=== PATIENT | male | born 1965 | race Caucasian/White ===

== ENCOUNTER 2025-05-22 16:21 | Inpatient (IN) | payer MEDICAID ==
[~2025-05-22] VITALS: Ht 182.9 cm; Wt 95.7 kg
[2025-05-22] MEDS ORDERED: ARIP400S6 IM (16:35)
[2025-05-22] MEDS ORDERED: LITH300C3 PO (16:35)
[2025-05-22] MEDS ORDERED: AMAN-24 PO (16:35)
[2025-05-22] MEDS ORDERED: CLOZ25TA52 PO (16:35)
[2025-05-22] MEDS ORDERED: DIPH50VI13 IM (16:35)
[2025-05-22] MEDS ORDERED: HALO5VIA16 IM (16:35)
[2025-05-22] MEDS ORDERED: ARIP400S3 IM (16:39)
[2025-05-22] MEDS ORDERED: ZOLPIDEM TARTRATE 10 MG TABLET PO PRN ×3 (17:45→20:30)
[2025-05-22 18:44] LABS: PLATELET COUNT (AUTO) 232 K/uL (150-450); RED BLOOD CELL COUNT(AUTO) 4.99 MIL/uL (4.50-5.90); RED CELL DISTRIBUTION WIDTH 14.4 % (11.5-14.5); WHITE BLOOD COUNT (AUTO) 8.9 K/uL (4.5-11.0)
[2025-05-22 18:51] LABS: COVID AG,FIA SOURCE NASAL SWAB
[2025-05-22 18:54] LABS: CALCIUM, TOTAL 8.9 mg/dL (8.8-10.5); CREATININE 1.05 mg/dL (0.60-1.30); GLOMERULAR FILTR. RATE CALC > 60 mL/min (>60); GLUCOSE,RANDOM 79 mg/dL (70-110); SODIUM SERUM 141 mmol/L (136-145); UREA NITROGEN, BLOOD 17 mg/dL (7-18)
[2025-05-22 19:08] LABS: SARS-COV2 (COVID) ANTIGEN,FIA Negative (Negative)
[2025-05-22 20:24] VITALS: O2SAT 98
[2025-05-22 22:10] VITALS: BP 135/96; PULSE 85; RESP 18; TEMP 97.8; O2SAT 98
[2025-05-23] MEDS: NICOTINE 14 MG/24 HOUR PATCH TD SCH (08:30)
[2025-05-23 08:31] VITALS: BP 128/76; PULSE 88; RESP 16; TEMP 98.2; O2SAT 98
[2025-05-23] MEDS ORDERED: PROMETHAZINE HCL 25 MG TABLET PO PRN (10:15)
[2025-05-23] MEDS ORDERED: LOPERAMIDE HCL 2 MG CAPSULE PO PRN (10:15)
[2025-05-23] MEDS ORDERED: MAG HYDROX/ALUMINUM HYD/SIMETH ES 30 ML SUSPENSION UDCUP PO PRN (10:15)
[2025-05-23] MEDS ORDERED: GuaiFENesin/D-METHORPHAN [SUGAR-FREE] 200-20MG/10 ML SYRUP UDCUP PO PRN (10:15)
[2025-05-23] MEDS ORDERED: MAGNESIUM HYDROXIDE SUSPENSION 30 ML UDCUP PO PRN (10:15)
[2025-05-23] MEDS ORDERED: OLANZapine 5 MG RAPDIS TABLET PO PRN (10:15)
[2025-05-23] MEDS ORDERED: ACETAMINOPHEN 325 MG TABLET PO PRN (10:15)
[2025-05-23] MEDS: DIVALPROEX SODIUM 500 MG ER TABLET PO SCH (12:12)
[2025-05-23] MEDS: LITHIUM CARBONATE 300 MG CAPSULE PO SCH (16:09)
[2025-05-23] MEDS: THIAMINE 100 MG TABLET PO SCH (16:09)
[2025-05-23] MEDS: OLANZapine 5 MG RAPDIS TABLET PO SCH (16:10)
[2025-05-23] MEDS: MELATONIN 5 MG TABLET PO SCH (20:18)
[2025-05-24] MEDS: FOLIC ACID 1 MG TABLET PO SCH (09:00)
[2025-05-24] MEDS: OMEGA-3/DHA/EPA/FISH OIL 1,000 MG CAPSULE PO SCH (09:05)
[2025-05-24] MEDS: MULTIVITAMINS WITH MINERALS, THERAPEUTIC TABLET PO SCH (09:05)
[2025-05-24] MEDS: TUBERCULIN, PURIFIED PROTEIN DERIVATIVE 5 TU/0.1 ML SYRINGE ID ONE (16:40)
[2025-05-24 20:34] VITALS: BP 116/69; PULSE 89; RESP 17; TEMP 98; O2SAT 99
[2025-05-25 08:39] VITALS: RESP 17
[2025-05-25 09:03] LABS: PLATELET COUNT (AUTO) 191 K/uL (150-450); RED BLOOD CELL COUNT(AUTO) 4.77 MIL/uL (4.50-5.90); RED CELL DISTRIBUTION WIDTH 14.6 % (11.5-14.5); WHITE BLOOD COUNT (AUTO) 8.3 K/uL (4.5-11.0)
[2025-05-25 09:36] LABS: CHOL/HDL RATIO 4.3 (4.2-7.3); LDL CHOL (CALC.) 107.0 mg/dL (0-130)
[2025-05-25] MEDS: PALIPERIDONE PALMITATE 234 MG/1.5 ML SYRINGE IM ONE (09:50)
[2025-05-25] MEDS: LITHIUM CARBONATE 300 MG CAPSULE PO SCH (22:05)
[2025-05-26] MEDS: LITHIUM CARBONATE 300 MG CAPSULE PO SCH (13:27)
[2025-05-26 20:27] VITALS: BP 127/82; PULSE 78; RESP 18; TEMP 98.2; O2SAT 98
[2025-05-27 08:00] VITALS: BP 107/60; PULSE 82; RESP 18; TEMP 98; O2SAT 98
[2025-05-27] MEDS ORDERED: CLOZ25TA52 PO ×4 (10:46→15:01)
[2025-05-27] MEDS ORDERED: AMAN-24 PO (10:46)
[2025-05-27] MEDS ORDERED: CLOZ100T61 PO ×3 (10:46→15:01)
[2025-05-27] MEDS ORDERED: OMEG100033 PO (10:50)
[2025-05-27] MEDS ORDERED: LITH300C3 PO ×2 (10:50→15:05)
[2025-05-27] MEDS ORDERED: MELA5TAB40 PO (10:50)
[2025-05-27] MEDS ORDERED: OLAN5TAB94 PO (10:50)
[2025-05-27] MEDS: PALIPERIDONE PALMITATE 156 MG/ML SYRINGE IM ONE (13:12)
[2025-05-27] MEDS ORDERED: DIVA-153 PO (15:01)
[2025-05-27] MEDS ORDERED: MELA5TAB12 PO (15:05)
== END 2025-05-27 15:08 | DRG 761 ==
LOC: EMS 16:21 → B2S 18:58
PROVIDERS: ADMIT Psychiatry & Neurology Psychiatry; ATTEND Psychiatry & Neurology Psychiatry
PROC: GZHZZZZ Group Psychotherapy (ICD-10-PCS; principal; 2025-05-23)
PROC: GZ58ZZZ Individual Psychotherapy, Cognitive-Behavioral (ICD-10-PCS; 2025-05-23)
PROC: GZ56ZZZ Individual Psychotherapy, Supportive (ICD-10-PCS; 2025-05-25)
DX: F25.9 Schizoaffective disorder, unspecified (principal); E78.00 Pure hypercholesterolemia, unspecified; I10 Essential (primary) hypertension; Z20.822 Contact with and (suspected) exposure to COVID-19; K11.7 Disturbances of salivary secretion; N40.0 Benign prostatic hyperplasia without lower urinary tract symptoms; Z55.9 Problems related to education and literacy, unspecified; Z59.9 Problem related to housing and economic circumstances, unspecified; Z63.9 Problem related to primary support group, unspecified; Z65.3 Problems related to other legal circumstances; Z91.199 Patient's noncompliance with other medical treatment and regimen due to unspecified reason; Z79.899 Other long term (current) drug therapy
CPT/HCPCS: 80048; 80061; 80178; 84439; 84443; 85025; 86592; 87081; 99285; G0480; J1630

== ENCOUNTER 2025-05-27 19:58 | Inpatient (IN) | payer MEDICAID ==
[~2025-05-27] VITALS: Ht 182.9 cm; Wt 97.8 kg
[~2025-05-27 19:58] MED LIST: AMAN-24 PO; ARIP400S3 IM; CLOZ100T61 PO; CLOZ25TA52 PO; DIPH50VI13 IM; DIVA-153 PO; HALO5VIA16 IM; LITH300C3 PO; MELA5TAB12 PO; MELA5TAB40 PO; OLAN5TAB94 PO; OMEG100033 PO
[2025-05-27 23:10] VITALS: O2SAT 98
[2025-05-28 03:53] VITALS: BP 130/78; PULSE 74; RESP 18; TEMP 98.5; O2SAT 100
[2025-05-28] MEDS: LITHIUM CARBONATE 300 MG CAPSULE PO SCH (08:24)
[2025-05-28 10:08] VITALS: BP 129/92; PULSE 68; RESP 16; TEMP 98; O2SAT 99
[2025-05-28 20:05] VITALS: BP 99/66; PULSE 76; RESP 16; TEMP 98.2; O2SAT 97
[2025-05-28] MEDS: MELATONIN 5 MG TABLET PO SCH (20:31)
[2025-05-28] MEDS ORDERED: ZOLPIDEM TARTRATE 10 MG TABLET PO PRN (21:45)
[2025-05-29 08:05] VITALS: BP 116/83; PULSE 88; RESP 15; TEMP 97.4; O2SAT 100
[2025-05-29 20:49] VITALS: BP 104/72; PULSE 61; RESP 17; TEMP 97.3; O2SAT 97
[2025-05-30 08:07] VITALS: BP 106/65; PULSE 71; RESP 15; TEMP 97.3; O2SAT 97
[2025-05-30 20:07] VITALS: BP 104/72; PULSE 62; RESP 16; TEMP 97.2; O2SAT 96
[2025-05-31 08:12] VITALS: BP 100/71; PULSE 80; RESP 16; TEMP 97.4; O2SAT 100
[2025-05-31 20:07] VITALS: BP 115/77; PULSE 70; RESP 18; TEMP 97.3; O2SAT 98
[2025-06-01 08:03] VITALS: BP 105/74; PULSE 75; RESP 17; TEMP 97.4; O2SAT 97
[2025-06-01 20:06] VITALS: BP 118/72; PULSE 65; RESP 16; TEMP 97.3; O2SAT 98
[2025-06-02 09:45] LABS: PLATELET COUNT (AUTO) 255 K/uL (150-450); RED BLOOD CELL COUNT(AUTO) 5.23 MIL/uL (4.50-5.90); RED CELL DISTRIBUTION WIDTH 14.6 % (11.5-14.5); WHITE BLOOD COUNT (AUTO) 7.9 K/uL (4.5-11.0)
[2025-06-02 20:07] VITALS: BP 130/85; PULSE 59; RESP 17; TEMP 97.3; O2SAT 96
[2025-06-03 08:10] VITALS: BP 109/73; PULSE 75; RESP 16; TEMP 97.5; O2SAT 97
[2025-06-03 20:09] VITALS: RESP 18
[2025-06-04 08:09] VITALS: BP 138/99; PULSE 83; RESP 18; TEMP 97.2; O2SAT 96
[2025-06-04 09:23] LABS: CALCIUM, TOTAL 9.0 mg/dL (8.8-10.5); CREATININE 1.14 mg/dL (0.60-1.30); GLOMERULAR FILTR. RATE CALC > 60 mL/min (>60); GLUCOSE,RANDOM 133 mg/dL (70-110); SODIUM SERUM 137 mmol/L (136-145); UREA NITROGEN, BLOOD 15 mg/dL (7-18)
[2025-06-04 09:40] LABS: PLATELET COUNT (AUTO) 267 K/uL (150-450); RED BLOOD CELL COUNT(AUTO) 4.95 MIL/uL (4.50-5.90); RED CELL DISTRIBUTION WIDTH 14.6 % (11.5-14.5); WHITE BLOOD COUNT (AUTO) 7.4 K/uL (4.5-11.0)
[2025-06-04 09:48] LABS: ASPARTATE AMINOTRANSFERASE 16 U/L (15-37); CHOL/HDL RATIO 4.8 (4.2-7.3); LDL CHOL (CALC.) 85 mg/dL (0-130); TOTAL PROTEIN, SERUM 6.2 g/dL (6.4-8.2)
[2025-06-05 08:07] VITALS: BP 115/81; PULSE 84; RESP 17; TEMP 97.3; O2SAT 99
[2025-06-05] MEDS: OLANZapine 5 MG RAPDIS TABLET PO SCH ×2 (08:27→20:03)
[2025-06-06 09:19] VITALS: RESP 18
[2025-06-06 14:07] LABS: CLOZAPINE & NORCLOZAPINE 254 ng/mL; NORCLOZAPINE 85 ng/mL (Not Estab.)
[2025-06-06 20:02] VITALS: BP 105/85; PULSE 78; RESP 18; TEMP 97.4; O2SAT 99
[2025-06-07 08:03] VITALS: RESP 16
[2025-06-07 20:17] VITALS: RESP 18
[2025-06-08 08:37] VITALS: RESP 18
[2025-06-08 09:38] LABS: ASPARTATE AMINOTRANSFERASE 14 U/L (15-37); CALCIUM, TOTAL 9.3 mg/dL (8.8-10.5); CREATININE 1.06 mg/dL (0.60-1.30); GLOMERULAR FILTR. RATE CALC > 60 mL/min (>60); GLUCOSE,RANDOM 156 mg/dL (70-110); SODIUM SERUM 137 mmol/L (136-145); TOTAL PROTEIN, SERUM 6.9 g/dL (6.4-8.2); UREA NITROGEN, BLOOD 16 mg/dL (7-18)
[2025-06-08 20:13] VITALS: RESP 18
[2025-06-09 08:06] VITALS: BP 126/85; PULSE 88; RESP 18; TEMP 96.8; O2SAT 99
[2025-06-09] MEDS ORDERED: HALO100V36 IM (15:24)
[2025-06-09] MEDS ORDERED: OLAN5TAB94 PO (15:24)
[2025-06-09 20:13] VITALS: BP 129/83; PULSE 91; RESP 18; TEMP 97.6; O2SAT 95
[2025-06-10 06:07] LABS: CLOZAPINE & NORCLOZAPINE 586 ng/mL; NORCLOZAPINE 203 ng/mL (Not Estab.)
== END 2025-06-09 19:45 | DRG 761 ==
LOC: EMS 19:58 → B3A 05-28 00:06
PROVIDERS: ADMIT Psychiatry & Neurology Psychiatry; ATTEND Psychiatry & Neurology Psychiatry
PROC: GZHZZZZ Group Psychotherapy (ICD-10-PCS; principal; 2025-05-28)
PROC: GZ56ZZZ Individual Psychotherapy, Supportive (ICD-10-PCS; 2025-05-28)
DX: F25.9 Schizoaffective disorder, unspecified (principal); E78.00 Pure hypercholesterolemia, unspecified; I10 Essential (primary) hypertension; Z20.822 Contact with and (suspected) exposure to COVID-19; Z63.9 Problem related to primary support group, unspecified; Z59.9 Problem related to housing and economic circumstances, unspecified; Z65.3 Problems related to other legal circumstances; Z55.9 Problems related to education and literacy, unspecified; N40.0 Benign prostatic hyperplasia without lower urinary tract symptoms; Z56.0 Unemployment, unspecified; Z60.8 Other problems related to social environment; Z91.148 Patient's other noncompliance with medication regimen for other reason
CPT/HCPCS: 80053; 80061; 80159; 80178; 83036; 84439; 84443; 85025; 87081; 99285; J1631